=== PATIENT | male | born 2000 | race Caucasian/White ===

== ENCOUNTER 2019-06-28 23:19 | Emergency (ER) | payer SELFPAY ==
[~2019-06-28] VITALS: Ht 190.5 cm; Wt 95.5 kg
[2019-06-28 23:28] VITALS: BP 174/91; PULSE 131; TEMP 99.3
== END 2019-06-29 00:31 | disposition home or self-care (01) ==
LOC: COL.ER 23:19
DX: S01.511A Laceration without foreign body of lip, initial encounter (principal); W22.8XXA Striking against or struck by other objects, initial encounter; Y92.009 Unspecified place in unspecified non-institutional (private) residence as the place of occurrence of the external cause